=== PATIENT | female | born 1970 | race Caucasian/White ===

== ENCOUNTER 2016-06-20 09:00 | Emergency (ER) | payer BC ==
--- NOTE | ~2016-06-20 | EKG ---
PATIENT: NADER DEWEY UNIT #: [id number] Ventricular Rate: 67 BPM Atrial Rate: 67 BPM P-R Interval: 154 ms QRS Duration: 80 ms Q-T Interval: 382 ms QTC Calculation(Bezet): 403 ms P [place]: 21 degrees Calculated R [place]: 40 degrees Calculated T [place]: 41 degrees Diagnosis Line: Normal sinus rhythm Diagnosis Line: Normal ECG Diagnosis Line: Diagnosis Line: Confirmed by ARTURO CALDERON MD ([id number]) on 06/21/2016 Diagnosis Line: 10:00:01 AM INTERPRETING MD: KVNG RODRIGUES
--- NOTE | ~2016-06-20 | US67 ---
[facility] A Service of [facility] & [facility] RADIOLOGY TEXT RESULTS PATIENT: NADER DEWEY LOCATION: [facility] : 70 UNIT #: [id number] AGE: [address]: Kelley Tamez APRN SEX: F ORDER DR: [id number] [facility] [address] [place], [place] [address] [id number] E MR#: [id number] Acc #: [id number] NAME: NADER DEWEY : 1970 SEX: F STUDY DATE/TIME: 06/20/2016 11:28 UNIT: [facility] ROOM: STUDY DESCRIPTION: US Gallbladder Attending Physician: Kelley Tamez A.P.R.N. Ordering Physician: Ed Doctor [id number] [facility] Primary Care Physician: Evonne Corrales M.D. MEDICAL IMAGING REPORT This report is preliminary unless electronic signature is present EXAM Gallbladder ultrasound, 06/20/2016 HISTORY Right upper quadrant abdominal pain with nausea and vomiting since 06/16/2016 FINDINGS Ultrasound examination of the gallbladder is negative. There is no cholelithiasis, gallbladder wall thickening, or bile duct dilatation. The visualized liver is negative. IMPRESSION Negative gallbladder ultrasound examination. Dictated by... Duke Galan M.D. THIS IS AN ELECTRONICALLY VERIFIED REPORT Duke Galan M.D. at 06/21/2016 8:02 AM KRISHNA/isela TD: 06/20/2016 12:15 JOB #: [id number] MEDICAL IMAGING REPORT Page 1 of 1 COPY
--- NOTE | ~2016-06-20 | CR72 ---
[facility] A Service of [facility] RADIOLOGY TEXT RESULTS PATIENT: NADER DEWEY LOCATION: [facility] : 70 UNIT #: [id number] AGE: [address]: Kelley Tamez APRN SEX: F ORDER DR: [id number] [facility] [address] [place], [place] [address] [id number] E MR#: [id number] Acc #: [id number] NAME: NADER DEWEY : 1970 SEX: F STUDY DATE/TIME: 06/20/2016 10:00 UNIT: [facility] ROOM: STUDY DESCRIPTION: CR Chest Single View Portable Attending Physician: Kelley Tamez A.P.R.N. Ordering Physician: Ed Alex Mueller M.D. Primary Care Physician: Evonne Corrales M.D. MEDICAL IMAGING REPORT This report is preliminary unless electronic signature is present EXAM Portable chest DATE OF STUDY 06/20/2016 COMPARISON 07/13/2008 HISTORY SUPPLIED Right flank pain, nausea, and vomiting for 6 days. Heart murmur. FINDINGS An AP portable chest is obtained. There is some scarring in the left base. The cardiac size is normal. The lungs otherwise are clear. CONCLUSION No active disease. Dictated by... Osmin Martinez M.D. THIS IS AN ELECTRONICALLY VERIFIED REPORT Osmin Martinez M.D. at 06/23/2016 4:42 PM ABBIE/efren TD: 06/20/2016 10:57 JOB #: [id number] MEDICAL IMAGING REPORT Page 1 of 1 COPY
[~2016-06-20 09:00] MED LIST: ATARAX PO; BACLOFEN10 MG PO; BACTRIM DS TABL1 TA1 PO; CYMBALTA PO; FAMVIR250 MG PO; FLEXERIL10 M1 PO; HYDROCODON-ACE1 EAC9 PO; LAMICTAL PO; NABUMETONE PO; NAPROSYN500 MG PO; VICODIN 5/1 TAB 5/50 PO
[2016-06-20 10:03] LABS: BASOPHIL# 0.1 X10e3 (0-0.3); BASOPHIL% 1.3 % (0-2.5); EOSINOPHIL# 0.3 X10e3 (0-0.7); EOSINOPHIL% 5.4 % (0.0-7.0); HEMOGLOBIN 14.1 gm/dL (12.0-16.0); LYMPHOCYTE% 39.2 % (17.0-45.0); MEAN CELL VOLUME 83.9 FL (83-96); MEAN CORPUSCULAR HEMOGLOBIN 27.6 PG (28-34); MEAN CORPUSCULAR HGB CONC 32.9 g/dL (30-36); MEAN PLATELET VOLUME 7.7 FL (6.5-11.5); MONOCYTE# 0.4 X10e3 (0-1.0); MONOCYTE% 7.7 % (3.0-12.0); NEUTROPHIL# 2.4 X10e3 (1.5-7.1); NEUTROPHIL% 46.4 % (40-75); PLATELET COUNT 267 X10e3 (140-420); RED BLOOD COUNT 5.12 X10e (3.90-5.30); RED CELL DISTRIBUTION WIDTH 12.6 % (11.0-15.5); WHITE BLOOD COUNT 5.2 X10e3 (4.0-10.5)
[2016-06-20 10:04] LABS: DIFF IND NO
[2016-06-20 10:04] LABS: POC - CKMB <1.0 ng/mL (0.0-7.9); POC - TROPONIN <0.05 ng/mL (<=0.05)
[2016-06-20 10:48] LABS: ALBUMIN SERUM 3.9 g/dL (3.5-5.0); BILIRUBIN,TOTAL 0.4 mg/dL (0.2-2.0); CALCIUM SERUM 8.9 mg/dL (8.4-10.2); CREATININE SERUM 0.8 mg/dL (0.6-1.4); GLOM FILT RATE Estimated 88.5 mL/min (>60); POTASSIUM 4.3 mmol/L (3.5-5.1); PROTEIN TOTAL SERUM 7.2 g/dL (6.0-8.3)
[2016-06-20 10:54] LABS: URINE SOURCE CLEAN CATCH
[2016-06-20 10:59] LABS: URINE APPEARANCE CLEAR; URINE BILIRUBIN NEG (NEG); URINE BLOOD 1+ (NEG); URINE COLOR YELLOW; URINE GLUCOSE NEG (NEG); URINE KETONE NEG (NEG); URINE LEUKOCYTE ESTERASE NEG (NEG); URINE NITRATE NEG (NEG); URINE PROTEIN NEG (NEG); URINE UROBILINOGEN 0.2 MG/DL (NEG)
[2016-06-20 11:01] LABS: URBCS1 AUWI 0-2 /[HPF] (0-2); URINE BACTERIA AUWI NEG (NEGATIVE); URINE SQUAMOUS EPITHELIAL CELL OCC /[HPF]; UWBCS1 AUWI 0-2 (0-5)
[2016-06-20 11:02] LABS: CULTURE INDICATED? NO
[2016-06-22 02:19] LABS: CHLAMYDIA TRACH Not Detected (Not Detected); N GONOR Not Detected (Not Detected)
== END 2016-06-20 13:10 | disposition home or self-care (01) ==
LOC: CED 09:00
PROVIDERS: Nurse Practitioner
DX: R07.89 Other chest pain (principal); R10.11 Right upper quadrant pain; R11.2 Nausea with vomiting, unspecified; R19.7 Diarrhea, unspecified; F41.9 Anxiety disorder, unspecified; F32.9 Major depressive disorder, single episode, unspecified; Z88.0 Allergy status to penicillin; Z88.2 Allergy status to sulfonamides; Z87.891 Personal history of nicotine dependence; Z87.442 Personal history of urinary calculi
CPT/HCPCS: 36415; 71010; 76705; 80053; 81003; 82150; 82553; 83690; 84484; 84703; 85025; 87491; 87591; 87905; 93005; 96361; 96374; 96375; 99284; J1885; J2405